=== PATIENT | male | born 1980 | race Caucasian/White ===

== ENCOUNTER 2016-07-13 22:35 | Emergency (ER) | payer OTHER ==
[~2016-07-13] VITALS: Ht 172.7 cm; Wt 94.5 kg
[~2016-07-13 22:35] MED LIST: AUGMENTIN875 MG PO; BABY ASPIRIN81 M1 PO; ENALAPRIL MALEA20 MG PO; FLEXERIL5 MG PO; HYDROCODON-ACE1 EAC7 PO; KEFLEX500 MG PO; LEVEMIR FL100 UNIT/1 SC; LEVEMIR FL100 UNITS/ SC; LEVEMIR FL100 UNITS/ SQ; LEVOTHROID100 MCG PO; MOTRIN800 MG PO; NAPROSYN500 MG PO; NORCO 5/3251 TABLET PO; ROBITUSSIN AC,T10 ML PO; TAMIFLU75 MG PO; ZOCOR20 MG PO; ZOFRAN ODT4 MG PO
[2016-07-13 22:56] LABS: POINT-OF-CARE METER ID UU13113778
[2016-07-13 23:01] LABS: HEMATOCRIT 44.1 % (38.0-50.0); MCH 30.8 PG (29.0-34.0); MCHC 34.2 G/DL (30.0-36.0); MCV 89.8 FL (86-99); PLATELET COUNT 268 K/uL (156-360); RBC DIS.WIDTH-CV 12.6 % (11.8-14.6); RBC DIS.WIDTH-SD 40.9 % (39-53); RED BLOOD COUNT 4.91 M/uL (4.00-5.50); WHITE BLOOD COUNT 9.3 K/uL (4.1-10.2)
[2016-07-13 23:09] LABS: CHLORIDE 104 mEq/L (99-109); POTASSIUM 4.1 mEq/L (3.7-5.4); SODIUM 141 mEq/L (136-147)
[2016-07-13 23:11] LABS: GLUCOSE 310 mg/dL (70-99)
[2016-07-13 23:12] LABS: ANION GAP 9 MEQ/L (2-14)
[2016-07-13 23:15] LABS: GFR ESTIMATE (CALCULATED) > 59 mL/min/; UREA NITROGEN (BUN) 18 mg/dL (9-23)
[2016-07-13 23:21] LABS: TROP-I INTERPRETATION NEGATIVE; TROPONIN-I 0.02 ng/mL (0.0-0.30)
[2016-07-14 01:22] LABS: TROP-I INTERPRETATION NEGATIVE; TROPONIN-I < 0.01 ng/mL (0.0-0.30)
[2016-07-14 02:07] VITALS: BP 125/68
== END 2016-07-14 02:10 | disposition home or self-care (01) ==
LOC: EME 22:35
PROVIDERS: Emergency Medicine
DX: R00.2 Palpitations (principal); E11.9 Type 2 diabetes mellitus without complications; E03.9 Hypothyroidism, unspecified; F17.200 Nicotine dependence, unspecified, uncomplicated; Z79.4 Long term (current) use of insulin; Z96.41 Presence of insulin pump (external) (internal)
CPT/HCPCS: 71020; 80048; 82948; 84484; 85027; 93005; 99281; 99284; J7030

== ENCOUNTER 2016-09-14 12:09 | Emergency (ER) | payer OTHER ==
[~2016-09-14] VITALS: Ht 172.7 cm; Wt 92.8 kg
[2016-09-14] MEDS ORDERED: MOTRIN600 MG PO (15:27)
[2016-09-14 16:01] VITALS: BP 101/61
== END 2016-09-14 16:02 | disposition home or self-care (01) ==
LOC: EME 12:09 → EXP 12:09
DX: S93.602A Unspecified sprain of left foot, initial encounter (principal); W10.9XXA Fall (on) (from) unspecified stairs and steps, initial encounter; F17.200 Nicotine dependence, unspecified, uncomplicated
CPT/HCPCS: 73630; 99281; 99284

== ENCOUNTER 2016-10-09 06:43 | Emergency (ER) | payer OTHER ==
[~2016-10-09] VITALS: Ht 172.7 cm; Wt 96.0 kg
[~2016-10-09 06:43] MED LIST changes: +MOTRIN600 MG PO
[2016-10-09 08:10] LABS: BASOPHIL COUNT 0.1 K/uL (0-0.1); EOSINOPHIL (%) 0.9 % (0-5); EOSINOPHIL COUNT 0.1 K/uL (0-0.3); HEMATOCRIT 45.3 % (38.0-50.0); IMMATURE GRANULOCYTE (%) 0.6 % (0.0-0.7); IMMATURE GRANULOCYTE COUNT 0.1 K/uL; INSTRUMENT ABS NEUTROPHIL CT 10.8 K/uL; LYMPHOCYTE COUNT 1.9 K/uL (1.0-2.8); MCHC 32.2 G/DL (30.0-36.0); MEAN PLAT.VOLUME 9.9 uM^3 (9.0-12.4); MONOCYTE (%) 6.8 % (3-12); NEUTROPHIL (%) 77.7 % (45-76); NEUTROPHIL COUNT 10.8 K/uL (1.8-6.4); PLATELET COUNT 297 K/uL (156-360); RBC DIS.WIDTH-CV 11.9 % (11.8-14.6); RBC DIS.WIDTH-SD 40.9 % (39-53); RED BLOOD COUNT 4.87 M/uL (4.00-5.50); WHITE BLOOD COUNT 13.9 K/uL (4.1-10.2)
[2016-10-09 08:26] LABS: CARBON DIOXIDE (BICARBONATE) 32.9 MEQ/L (20-31)
[2016-10-09 08:51] LABS: ALKALINE PHOSPHATASE 74 IU/L (3-129); ANION GAP 8 MEQ/L (2-14); CHLORIDE 102 MEQ/L (99-109); DIRECT BILIRUBIN 0.1 mg/dL (0.0-0.3); GFR ESTIMATE (CALCULATED) > 59 mL/min/; SAMPLE HEMOLYSIS CHECK 0; SAMPLE ICTERIC CHECK 0; SAMPLE LIPEMIA CHECK 0; SODIUM 140 MEQ/L (136-147); TOTAL BILIRUBIN 0.4 MG/DL (0.0-1.0); UREA NITROGEN (BUN) 27 mg/dL (9-23)
[2016-10-09 08:53] LABS: GLUCOSE 128 mg/dL (70-99); POTASSIUM 4.6 MEQ/L (3.7-5.4)
[2016-10-09 09:16] LABS: ADD MIUA? NO; BILIRUBIN NEGATIVE; BLOOD NEGATIVE; COLOR YELLOW ((YELLOW)); GLUCOSE (STRIP) >=500; KETONES NEGATIVE; LEUKOCYTES NEGATIVE; NITRITE NEGATIVE; PROTEIN (STRIP) NEGATIVE; SPECIFIC GRAVITY 1.023 (1.000-1.030); UROBILINOGEN 0.2 MG/DL (0.2-1.0)
[2016-10-09] MEDS ORDERED: MOTRIN800 MG PO (09:42)
[2016-10-09] MEDS ORDERED: ZOFRAN ODT4 MG PO (09:42)
[2016-10-09 09:52] VITALS: BP 120/76
== END 2016-10-09 10:07 | disposition home or self-care (01) ==
LOC: EME 06:43
PROVIDERS: Emergency Medicine
DX: R11.2 Nausea with vomiting, unspecified (principal); R20.2 Paresthesia of skin; E10.8 Type 1 diabetes mellitus with unspecified complications; Z96.41 Presence of insulin pump (external) (internal); J45.909 Unspecified asthma, uncomplicated; E03.9 Hypothyroidism, unspecified; F17.200 Nicotine dependence, unspecified, uncomplicated
CPT/HCPCS: 80048; 80076; 81003; 82803; 85025; 99281; 99285; J2270; J7030

== ENCOUNTER 2016-11-16 07:20 | Emergency (ER) | payer OTHER ==
[~2016-11-16] VITALS: Ht 172.7 cm; Wt 98.9 kg
[2016-11-16] MEDS ORDERED: LEVOTHYROXINE100 MCG PO (07:47)
[2016-11-16] MEDS ORDERED: SIMVASTATIN40 MG PO (07:47)
[2016-11-16] MEDS ORDERED: HUMALOG100 UNIT/1 SC (07:47)
[2016-11-16] MEDS ORDERED: DAILY VALUE1 EACH PO (07:48)
[2016-11-16] MEDS ORDERED: LORATADINE10 M2 PO (07:48)
[2016-11-16] MEDS ORDERED: NAPROXEN500 MG PO (07:56)
[2016-11-16 08:41] VITALS: BP 123/71
== END 2016-11-16 08:42 | disposition home or self-care (01) ==
LOC: EME 07:20
DX: G56.03 Carpal tunnel syndrome, bilateral upper limbs (principal); G89.29 Other chronic pain; I10 Essential (primary) hypertension; E78.00 Pure hypercholesterolemia, unspecified; E03.9 Hypothyroidism, unspecified; E11.9 Type 2 diabetes mellitus without complications; Z79.4 Long term (current) use of insulin; Z79.82 Long term (current) use of aspirin; F17.200 Nicotine dependence, unspecified, uncomplicated; Z71.6 Tobacco abuse counseling
CPT/HCPCS: 99281; 99284; J1885

== ENCOUNTER → 2017-03-01 | Outpatient (CLI) | payer OTHER ==
[~2017-03-01] MED LIST changes: +DAILY VALUE1 EACH PO; +HUMALOG100 UNIT/1 SC; +LEVOTHYROXINE100 MCG PO; +LORATADINE10 M2 PO; +LYRICA50 MG PO; +NAPROXEN500 MG PO; +SIMVASTATIN40 MG PO; +ZOCOR40 MG PO
== END | disposition home or self-care (01) ==
LOC: CDC 09:47
DX: Z01.810 Encounter for preprocedural cardiovascular examination (principal); Z79.899 Other long term (current) drug therapy
CPT/HCPCS: 93000

== ENCOUNTER 2017-03-06 05:05 | Day surgery (SDC) | payer OTHER ==
[~2017-03-06] VITALS: Ht 172.7 cm; Wt 100.2 kg
[2017-03-06 05:49] VITALS: BP 122/79
[2017-03-06 06:21] LABS: POINT-OF-CARE METER ID UU14174212; POINT-OF-CARE USER ID AHSRSCSLC11
[2017-03-06 08:28] LABS: POINT-OF-CARE METER ID UU13113675
[2017-03-06 08:35] VITALS: BP 121/81
[2017-03-06 09:31] VITALS: BP 129/77
== END 2017-03-06 09:37 | disposition home or self-care (01) ==
LOC: SDC
PROVIDERS: Orthopaedic Surgery
PROC: 01N50ZZ Release Median Nerve, Open Approach (ICD-10-PCS; principal; 2017-03-06)
DX: G56.01 Carpal tunnel syndrome, right upper limb (principal); E11.9 Type 2 diabetes mellitus without complications; E03.9 Hypothyroidism, unspecified; E78.00 Pure hypercholesterolemia, unspecified; Z79.4 Long term (current) use of insulin; Z79.82 Long term (current) use of aspirin; F17.210 Nicotine dependence, cigarettes, uncomplicated
CPT/HCPCS: 82948; J0131; J1885; J2250; J2405; J3010

== ENCOUNTER 2017-05-27 07:50 | Emergency (ER) | payer OTHER ==
[~2017-05-27] VITALS: Ht 172.7 cm; Wt 101.6 kg
[2017-05-27] MEDS ORDERED: MOBIC7.5 MG PO (10:58)
[2017-05-27] MEDS ORDERED: NORCO 5/3251 TABLET PO (10:58)
[2017-05-27 11:09] VITALS: BP 113/71
== END 2017-05-27 11:14 | disposition home or self-care (01) ==
LOC: EME 07:50
DX: M25.531 Pain in right wrist (principal); M79.642 Pain in left hand; E11.9 Type 2 diabetes mellitus without complications; Z79.4 Long term (current) use of insulin; E03.9 Hypothyroidism, unspecified; F17.200 Nicotine dependence, unspecified, uncomplicated; Z98.890 Other specified postprocedural states
CPT/HCPCS: 73110; 99281; 99283

== ENCOUNTER 2017-08-12 22:34 | Inpatient (IN) | payer OTHER ==
[~2017-08-12] VITALS: Ht 172.7 cm; Wt 100.0 kg
[~2017-08-12 22:34] MED LIST changes: +ASPIR 8181 M1 PO; -BABY ASPIRIN81 M1 PO; -HUMALOG100 UNIT/1 SC; +INSULIN PUMP MC; -LEVOTHROID100 MCG PO; +MOBIC7.5 MG PO; +SYNTHROID100 MCG PO
[2017-08-12 23:00] LABS: HEMATOCRIT 43.7 % (38.0-50.0); HEMOGLOBIN 14.7 G/DL (12.5-16.6); MCH 30.8 PG (29.0-34.0); MCHC 33.6 G/DL (30.0-36.0); MCV 91.4 FL (86-99); PLATELET COUNT 308 K/uL (156-360); RBC DIS.WIDTH-CV 11.7 % (11.8-14.6); RBC DIS.WIDTH-SD 39.5 % (39-53); RED BLOOD COUNT 4.78 M/uL (4.00-5.50); WHITE BLOOD COUNT 9.9 K/uL (4.1-10.2)
[2017-08-12 23:15] LABS: ALBUMIN 4.2 g/dL (3.2-4.8); CHLORIDE 96 mEq/L (99-109); POTASSIUM 5.1 mEq/L (3.7-5.4); SODIUM 128 mEq/L (136-147)
[2017-08-12 23:20] LABS: TOTAL BILIRUBIN 0.7 mg/dL (0.0-1.0)
[2017-08-12 23:21] LABS: ALKALINE PHOSPHATASE 100 IU/L (3-129); CREATININE 1.5 mg/dL (0.6-1.3); GFR ESTIMATE (CALCULATED) 56 mL/min/ (58.99-99999)
[2017-08-12 23:22] LABS: UREA NITROGEN (BUN) 37 mg/dL (9-23)
[2017-08-12 23:23] LABS: AST (GOT) 20 IU/L (2-34)
[2017-08-12 23:24] LABS: ALT (GPT) 23 IU/L (3-49)
[2017-08-12 23:25] LABS: GLUCOSE 634 mg/dL (70-99); LIPASE 26 U/L (1.0-51.0)
[2017-08-13] VITALS (11 sets, daily range): BP systolic 18–139; BP diastolic 52–68
[2017-08-13 00:06] LABS: CARBON DIOXIDE (BICARBONATE) 21.8 MEQ/L (20-31)
[2017-08-13 03:38] LABS: APPEARANCE CLEAR ((CLEAR)); BILIRUBIN NEGATIVE; BLOOD NEGATIVE; COLOR STRAW ((YELLOW)); GLUCOSE (STRIP) >=500; KETONES 20; LEUKOCYTES NEGATIVE; NITRITE NEGATIVE; PROTEIN (STRIP) NEGATIVE; SPECIFIC GRAVITY 1.022 (1.000-1.030); UCUL ADDED? NO; UROBILINOGEN 0.2 MG/DL (0.2-1.0)
[2017-08-13 04:36] LABS: CHLORIDE 102 mEq/L (99-109); POTASSIUM 4.8 mEq/L (3.7-5.4); SODIUM 132 mEq/L (136-147)
[2017-08-13 04:41] LABS: CREATININE 1.3 mg/dL (0.6-1.3); GFR ESTIMATE (CALCULATED) > 59 mL/min/ (58.99-99999)
[2017-08-13 04:42] LABS: UREA NITROGEN (BUN) 36 mg/dL (9-23)
[2017-08-13 04:49] LABS: GLUCOSE 455 mg/dL (70-99)
[2017-08-13 11:05] LABS: THYROTROPIN (TSH) 0.54 MIU/L (0.4-5.5)
[2017-08-13 11:09] LABS: ALBUMIN 4.1 G/DL (3.2-4.8); ALKALINE PHOSPHATASE 89 IU/L (3-129); ALT (GPT) 19 IU/L (3-49); AST (GOT) 14 IU/L (2-34); CHLORIDE 100 MEQ/L (99-109); CREATININE 1.2 MG/DL (0.6-1.3); GFR ESTIMATE (CALCULATED) > 59 mL/min/ (58.99-99999); MAGNESIUM 1.8 mg/dl (1.3-2.7); SODIUM 133 MEQ/L (136-147); TOTAL BILIRUBIN 0.8 MG/DL (0.0-1.0); TOTAL PROTEIN 6.2 G/DL (6.4-8.3); UREA NITROGEN (BUN) 32 mg/dL (9-23)
[2017-08-13 11:10] LABS: CARBON DIOXIDE (BICARBONATE) 14.9 MEQ/L (20-31)
[2017-08-13 11:14] LABS: GLUCOSE 445 mg/dL (70-99)
[2017-08-13 11:15] LABS: POTASSIUM 6.1 MEQ/L (3.7-5.4)
[2017-08-13] MEDS ORDERED: FLONASE16 G1 BOTH NARES (12:29)
[2017-08-13] MEDS ORDERED: MELOXICAM7.5 MG PO (12:29)
[2017-08-13 16:48] LABS: CHLORIDE 104 MEQ/L (99-109); CREATININE 1.2 MG/DL (0.6-1.3); GFR ESTIMATE (CALCULATED) > 59 mL/min/ (58.99-99999); GLUCOSE 274 mg/dL (70-99); PHOSPHORUS 3.8 mg/dL (2.5-4.9); SODIUM 133 MEQ/L (136-147); UREA NITROGEN (BUN) 29 mg/dL (9-23)
[2017-08-13 16:49] LABS: POTASSIUM 4.8 MEQ/L (3.7-5.4)
[2017-08-13 20:21] LABS: CHLORIDE 104 MEQ/L (99-109); CREATININE 1.1 MG/DL (0.6-1.3); GFR ESTIMATE (CALCULATED) > 59 mL/min/ (58.99-99999); GLUCOSE 309 mg/dL (70-99); PHOSPHORUS 3.5 mg/dL (2.5-4.9); POTASSIUM 4.2 MEQ/L (3.7-5.4); SODIUM 133 MEQ/L (136-147); UREA NITROGEN (BUN) 25 mg/dL (9-23)
[2017-08-14] VITALS (10 sets, daily range): BP systolic 98–120; BP diastolic 54–74
[2017-08-14 00:51] LABS: CHLORIDE 107 mEq/L (99-109); POTASSIUM 3.9 mEq/L (3.7-5.4); SODIUM 137 mEq/L (136-147)
[2017-08-14 00:55] LABS: GLUCOSE 115 mg/dL (70-99)
[2017-08-14 00:56] LABS: PHOSPHORUS 3.2 mg/dL (2.5-4.9)
[2017-08-14 00:57] LABS: CREATININE 1.1 mg/dL (0.6-1.3); GFR ESTIMATE (CALCULATED) > 59 mL/min/ (58.99-99999)
[2017-08-14 00:58] LABS: UREA NITROGEN (BUN) 24 mg/dL (9-23)
[2017-08-14 05:16] LABS: CHLORIDE 109 mEq/L (99-109)
[2017-08-14 05:17] LABS: SODIUM 139 mEq/L (136-147)
[2017-08-14 05:22] LABS: CREATININE 1.1 mg/dL (0.6-1.3); GFR ESTIMATE (CALCULATED) > 59 mL/min/ (58.99-99999); GLUCOSE 82 mg/dL (70-99); PHOSPHORUS 2.8 mg/dL (2.5-4.9)
[2017-08-14 05:23] LABS: UREA NITROGEN (BUN) 22 mg/dL (9-23)
[2017-08-14 08:49] LABS: CHLORIDE 106 MEQ/L (99-109); GFR ESTIMATE (CALCULATED) > 59 mL/min/ (58.99-99999); POTASSIUM 4.2 MEQ/L (3.7-5.4); SODIUM 139 MEQ/L (136-147); UREA NITROGEN (BUN) 19 mg/dL (9-23)
[2017-08-14 08:51] LABS: GLUCOSE 136 mg/dL (70-99); PHOSPHORUS 2.1 mg/dL (2.5-4.9)
[2017-08-14 10:03] LABS: HEMOGLOBIN A1c (GLYCOHEMOGLOB) 8.5 % (Below 5.7)
[2017-08-14 13:10] LABS: CHLORIDE 105 MEQ/L (99-109); GFR ESTIMATE (CALCULATED) > 59 mL/min/ (58.99-99999); PHOSPHORUS 1.7 mg/dL (2.5-4.9); POTASSIUM 4.1 MEQ/L (3.7-5.4); SODIUM 137 MEQ/L (136-147); UREA NITROGEN (BUN) 17 mg/dL (9-23)
[2017-08-14 13:22] LABS: GLUCOSE 208 mg/dL (70-99)
== END 2017-08-14 18:12 | disposition home or self-care (01) | DRG 638 ==
LOC: EME 22:34 → EDOF 08-13 05:48 → ENRESERV 08-13 05:51 → 5WEST 08-13 07:06 → 4WEST 08-13 10:38 → 5WEST 08-13 10:38 → ENRESERV 08-13 10:41 → 5WEST 08-13 11:24 → ENRESERV 08-13 11:26 → 4WEST 08-13 13:52 → CANRESERV 08-14 07:00 → ENRESERV 08-14 07:00 → CANRESERV 08-14 16:42 → 4WEST 08-14 18:12
PROVIDERS: Emergency Medicine; Internal Medicine; Internal Medicine Critical Care Medicine; Physician Assistant Medical
DX: E10.10 Type 1 diabetes mellitus with ketoacidosis without coma (principal); N17.9 Acute kidney failure, unspecified; K04.7 Periapical abscess without sinus; K02.9 Dental caries, unspecified; E03.9 Hypothyroidism, unspecified; E10.40 Type 1 diabetes mellitus with diabetic neuropathy, unspecified; E66.9 Obesity, unspecified; E78.5 Hyperlipidemia, unspecified; I10 Essential (primary) hypertension; I25.10 Atherosclerotic heart disease of native coronary artery without angina pectoris; F17.210 Nicotine dependence, cigarettes, uncomplicated; Z96.41 Presence of insulin pump (external) (internal); Z79.82 Long term (current) use of aspirin; Z79.4 Long term (current) use of insulin; Z23 Encounter for immunization; Z68.35 Body mass index [BMI] 35.0-35.9, adult
CPT/HCPCS: 80048; 80048 91; 80053; 81003; 82010; 82803; 82948; 83036; 83690; 83735; 84100; 84443; 85027; 87641; 90686; 99281; 99285; J0295; J1815; J2765; J3480; J7030; J7050

== ENCOUNTER 2017-08-28 08:21 | Day surgery (SDC) | payer OTHER ==
[~2017-08-28] VITALS: Ht 172.7 cm; Wt 105.7 kg
[~2017-08-28 08:21] MED LIST changes: +FLONASE16 G1 BOTH NARES; +MELOXICAM7.5 MG PO
[2017-08-28 09:00] VITALS: BP 130/72
[2017-08-28 13:00] VITALS: BP 127/76
== END 2017-08-28 13:16 | disposition home or self-care (01) ==
LOC: SDC 08:21
PROVIDERS: Orthopaedic Surgery
DX: G56.02 Carpal tunnel syndrome, left upper limb (principal); M65.342 Trigger finger, left ring finger; E11.9 Type 2 diabetes mellitus without complications; Z96.41 Presence of insulin pump (external) (internal); E03.9 Hypothyroidism, unspecified; F17.200 Nicotine dependence, unspecified, uncomplicated
CPT/HCPCS: 82948; 93005; J0690; J2250; J3010